=== PATIENT | female | born 1980 | race Caucasian/White ===

== ENCOUNTER 2017-03-23 23:12 | Emergency (ER) | payer SELFPAY ==
[2017-03-23] MEDS ORDERED: PREDNISONE 20 MG TAB PO ONE (23:48)
--- NOTE | 2017-03-23 23:49 | Emergency Department Record ---
History of Present Illness - General Chief Complaint: Cough Stated Complaint: COUGHING A LITTLE BIT OF BLOOD Time Seen by Provider: 03/23/17 23:29 Source: Patient, Family Mode of Arrival: Ambulatory Limitations: No limitations - History of Present Illness Initial Comments: 36 yo female presents with cough that had some blood in it tonight after a long hard coughing episode. She has been coughing on and off for several months. She had bronchitis and strep at one point. She later tested positive for Influenza and was treated. She has been on antibiotics multiple times. She has had some yellow sputum but tonight she had blood mixed in the sputum. She blew her nose and had blood as well. She is a smoker. She is not on any HRT. No history of DVT or PE. No calf pain or swelling. MD Complaint: Cough Onset/Timin -: Week(s) Severity: Mild Consistency: Other (One time) Improves With: Nothing Worsens With: Other (Hard coughing) Context: Sick contacts (Multiple other family had URI's as well) Associated Symptoms: Cough, Epistaxis Treatments Prior to Arrival: Other (Finished Keflex 2 days ago) - Related Data Previous Rx's Medication Instructions Recorded Azithromycin 250 mg PO DAILY #6 tablet 03/24/17 Allergies Allergy/AdvReac Type Severity Reaction Status Date / Time aspirin Allergy Severe ANAPHYLAXIS Unverified 12/15/16 10:25 Travel Screening - Travel/Exposure Within Last 30 Days Have you traveled within the last 30 days?: No Review of Systems Constitutional: Denies: Chills, Fever, Malaise, Weakness Eyes: Denies: Eye discharge, Eye pain, Photophobia, Vision change ENT: Reports: Congestion, Epistaxis, Throat pain Respiratory: Reports: Cough, Hemoptysis (small streak tonight after hard cough with nose bleed at the same time). Denies: Dyspnea, Stridor, Wheezes Cardiovascular: Denies: Chest pain, Palpitations, Syncope Endocrine: Denies: Fatigue Gastrointestinal: Denies: Abdominal pain, Diarrhea, Nausea, Vomiting Genitourinary: Denies: Dysuria, Urgency Musculoskeletal: Denies: Arthralgia, Back pain, Joint swelling, Myalgia Skin: Denies: Bruising, Change in color Neurological: Denies: Confusion, Headache Psychiatric: Denies: Anxiety Hematological/Lymphatic: Denies: Blood Clots (no history of DVT or PE), Easy bleeding, Easy bruising, Swollen glands Past Medical History - SOCIAL HISTORY Smoking Status: Current every day smoker Alcohol Use: None Drug Use: None - RESPIRATORY Hx Respiratory Disorders: No - CARDIOVASCULAR Hx Cardio Disorders: No Hx Chest Pain: Yes (chest pain 9-16 had neg cardio work up) - NEURO Hx Neuro Disorders: No - GI Hx GI Disorders: No - Hx Genitourinary Disorders: No Comment:: pt has IUD no menses x's 1 year - ENDOCRINE Hx Endocrine Disorders: No - MUSCULOSKELETAL Hx Musculoskeletal Disorders: No Comment:: pain right knee - PSYCH Hx Psych Problems: No Hx Anxiety: Yes - HEMATOLOGY/ONCOLOGY Hx Hematology/Oncology Disorders: No Family Medical History Any Significant Family History?: Yes Hx Diabetes: Father Hx HTN: Father Physical Exam - General General Appearance: Alert, Oriented x3, Cooperative, No acute distress Limitations: No limitations - Head Head exam: Atraumatic, Normal inspection - Eye Eye exam: Normal appearance, PERRL. negative: Conjunctival injection, Periorbital swelling - ENT ENT exam: Normal exam, Mucous membranes moist Ear exam: Normal external inspection Nasal Exam: Dried blood Mouth exam: Normal external inspection Teeth exam: Normal inspection Throat exam: Normal inspection - Neck Neck exam: Normal inspection, Full ROM. negative: Lymphadenopathy, Tenderness - Respiratory Respiratory exam: Normal lung sounds bilaterally. negative: Accessory muscle use, Chest wall tenderness, Decreased breath sounds, Respiratory distress, Rhonchi, Stridor, Wheezes - Cardiovascular Cardiovascular Exam: Regular rate, Normal rhythm, Normal heart sounds Peripheral Pulses: 2+: Radial (R), Radial (L) - GI/Abdominal GI/Abdominal exam: Soft - Rectal Rectal exam: Deferred - exam: Deferred - Extremities Extremities exam: Normal inspection, Full ROM, Normal capillary refill. negative: Calf tenderness, Pedal edema, Tenderness - Back Back exam: Reports: Normal inspection, Full ROM. Denies: Muscle spasm, Rash noted, Tenderness - Neurological Neurological exam: Alert, Normal gait, Oriented X3, Reflexes normal - Psychiatric Psychiatric exam: Normal affect, Normal mood - Skin Skin exam: Dry, Intact, Normal color, Warm Course Vital Signs 03/23/17 23:19 Temperature 97.9 F Pulse Rate [ 84 Pulse Ox Probe] Respiratory 18 Rate Blood Pressure 108/63 [Left Arm] Pulse Ox 98 - Reevaluation(s) Reevaluation #1: The patient has atypical symptoms for DVT/PE. She had yellow sputum and saw blood in her sputum after a hard coughing spell with associated nose bleed. i initially considered screening D-dimer but these symptoms are very unlikely to be be PE and blood likely was from the nose. Risk of a false negative D-Dimer resulting in CTA is possible. She had a CTA about 5 months ago. Cancer risks in the future are a concern for her atypical and very likely explainable small streak of blood in her sputum. No tachycardia, hypoxia, calf tenderness, chest pain, shortness of breath. 03/23/17 23:55 Medical Decision Making - Lab Data Result diagrams: 03/23/17 23:37 03/23/17 23:37 Disposition Disposition: Discharge Clinical Impression: Epistaxis, Bronchitis Disposition: Home, Self-Care Condition: (1) Good Instructions: Acute Bronchitis (ED) Additional Instructions: Call the family proctice office for close follow up Return if worse, fever, short of breath or any new concerns Prescriptions: Azithromycin 250 mg PO DAILY #6 tablet Forms: Patient Portal Access Time of Disposition: 00:31
[2017-03-24] MEDS ORDERED: IPRATROPIUM/ALBUTEROL 4 GM INH INH PRN
== END 2017-03-24 00:47 | disposition home or self-care (01) ==
LOC: ER 23:12
DX: R04.0 Epistaxis (principal); J20.9 Acute bronchitis, unspecified
CPT/HCPCS: 99283 ×2; 71020; J7512

== ENCOUNTER 2017-04-19 21:59 | Emergency (ER) | payer SELFPAY ==
--- NOTE | 2017-04-19 22:56 | Emergency Department Record ---
History of Present Illness - General Chief Complaint: Cough Stated Complaint: COUGH,PAIN SHOULDER BLADES Time Seen by Provider: 04/19/17 22:31 Source: Patient Mode of Arrival: Ambulatory - History of Present Illness Initial Comments: The patient states she has had constant pains around her chest in the front and the back for over a month. She states she is smoker and has been coughing which does not improve with inhalers, antibiotics, and steroids. The soreness is continuous, does not worsen with coughing. She denies f,c,n,v,d,ap, rashes, st, calf tenderness. she denies history of PE, DT, pneumonia. Her last CXR two months ago did NOT show pneumonia according to her. Onset/Timin -: Month(s) Severity: Moderate Severity scale (1-10): 7 Consistency: Constant - Related Data Previous Rx's Medication Instructions Recorded Methylprednisolone [Medrol Dose 0 mg PO UD #1 tab.ds.pk 04/20/17 Pack] Allergies Allergy/AdvReac Type Severity Reaction Status Date / Time aspirin Allergy Severe ANAPHYLAXIS Unverified 12/15/16 10:25 Travel Screening - Travel/Exposure Within Last 30 Days Have you traveled within the last 30 days?: No Review of Systems Reviewed: No additional complaints except as noted below Constitutional: Reports: As per HPI. Denies: Chills, Fever, Malaise, Night sweats, Weakness, Weight change Eyes: Reports: As per HPI. Denies: Eye discharge, Eye pain, Photophobia, Vision change ENT: Reports: As per HPI. Denies: Congestion, Dental pain, Ear pain, Epistaxis , Hearing loss, Throat pain Respiratory: Reports: As per HPI. Denies: Cough, Dyspnea, Hemoptysis, Stridor, Wheezes Cardiovascular: Reports: As per HPI. Denies: Arrhythmia, Chest pain, Dyspnea on exertion, Edema, Murmurs, Orthopnea, Palpitations, Paroxysmal nocturnal dyspnea, Rheumatic Fever, Syncope Endocrine: Reports: As per HPI. Denies: Fatigue, Heat or cold intolerance, Polydipsia, Polyuria Gastrointestinal: Reports: As per HPI. Denies: Abdominal pain, Constipation, Diarrhea, Hematemesis, Hematochezia, Melena, Nausea, Vomiting Genitourinary: Reports: As per HPI. Denies: Abnormal menses, Discharge, Dyspareunia, Dysuria, Frequency, Hematuria, Incontinence, Retention, Urgency Musculoskeletal: Reports: As per HPI. Denies: Arthralgia, Back pain, Gout, Joint swelling, Myalgia, Neck pain Skin: Reports: As per HPI. Denies: Bruising, Change in color, Change in hair/ nails, Lesions, Pruritus, Rash Neurological: Reports: As per HPI. Denies: Abnormal gait, Confusion, Headache, Numbness, Paresthesias, Seizure, Tingling, Tremors, Vertigo, Weakness Psychiatric: Reports: As per HPI. Denies: Anxiety, Auditory hallucinations, Depression, Homicidal thoughts, Suicidal thoughts, Visual hallucinations Hematological/Lymphatic: Reports: As per HPI. Denies: Anemia, Blood Clots, Easy bleeding, Easy bruising, Swollen glands Past Medical History - SOCIAL HISTORY Smoking Status: Current every day smoker Alcohol Use: None Drug Use: None - RESPIRATORY Hx Respiratory Disorders: No - CARDIOVASCULAR Hx Cardio Disorders: No Hx Chest Pain: Yes (chest pain 9-16 had neg cardio work up) - NEURO Hx Neuro Disorders: No - GI Hx GI Disorders: No - Hx Genitourinary Disorders: No Comment:: pt has IUD no menses x's 1 year - ENDOCRINE Hx Endocrine Disorders: No - MUSCULOSKELETAL Hx Musculoskeletal Disorders: No Comment:: pain right knee - PSYCH Hx Psych Problems: No Hx Anxiety: Yes - HEMATOLOGY/ONCOLOGY Hx Hematology/Oncology Disorders: No Family Medical History Any Significant Family History?: Yes Hx Diabetes: Father Hx HTN: Father Physical Exam - General General Appearance: Alert, Oriented x3, Cooperative, No acute distress - Head Head exam: Normal inspection - Eye Eye exam: Normal appearance, PERRL Pupils: Normal accommodation - ENT ENT exam: Normal exam, Mucous membranes moist, Normal external ear exam, Normal orophraynx, TM's normal bilaterally Ear exam: Normal external inspection. negative: External canal tenderness Nasal Exam: Normal inspection. negative: Discharge, Sinus tenderness Mouth exam: Normal external inspection, Tongue normal Teeth exam: Normal inspection. negative: Dental caries Throat exam: Normal inspection. negative: Tonsillar erythema, Tonsillar exudate - Neck Neck exam: Normal inspection, Full ROM. negative: Tenderness - Respiratory Respiratory exam: Decreased breath sounds. negative: Chest wall tenderness, Prolonged expiratory, Rales, Respiratory distress, Stridor, Wheezes - Cardiovascular Cardiovascular Exam: Regular rate, Normal rhythm, Normal heart sounds - GI/Abdominal GI/Abdominal exam: Soft, Normal bowel sounds. negative: Tenderness - Rectal Rectal exam: Deferred - exam: Deferred - Extremities Extremities exam: Normal inspection, Full ROM, Normal capillary refill. negative: Calf tenderness, Pedal edema, Tenderness - Back Back exam: Reports: Normal inspection, Full ROM. Denies: Muscle spasm, Rash noted, Tenderness - Neurological Neurological exam: Alert, CN II-XII intact, Normal gait, Oriented X3, Reflexes normal - Psychiatric Psychiatric exam: Normal affect, Normal mood - Skin Skin exam: Dry, Intact, Normal color, Warm Course Vital Signs 04/19/17 04/19/17 22:13 22:14 Temperature 98.3 F 98.3 F Pulse Rate [ 66 Pulse Ox Probe] Respiratory 20 20 Rate Blood Pressure 114/68 [Left Arm] Pulse Ox 98 98 - Reevaluation(s) Reevaluation #1: Patient is snuggling on cart with her boyfriend watching TV, NAD. States steroids helped before and agrees to toradol. 04/20/17 00:34 Reevaluation #2: Patient is requesting something to drink. Told to wait until her CT is completed. 04/20/17 02:14 Reevaluation #3: Lengthy detailed instructions given to patient and her regarding the need to stop smoking, positive reinforcements and support to help be successful. Also, the radiation she has received over these several visits are potentially dangerous. Patient understands and agrees. 04/20/17 03:13 Medical Decision Making - Management Options MDM Management: No Additional Work-up Planned - Data Complexity MDM Data: Labs Ordered and/or Reviewed (D Dimer 0.61), X-Ray Ordered and/or Reviewed (CTA chest: Normal. Per [facility].), EKG Ordered and/or Reviewed, Independent Visualization of Image, Tracing, or Specimen (Reviewed CTA report of 09-02-16 which showed no acute process, no aneurysm or dissection, and no PE. ), Decision to Obtain Old Record (Reviewed old record from February of this year when she was treated for bronchitis with antibiotics, no lab work, no CT's. Note was made that she had a CTA 5 months ago. ) - Lab Data Result diagrams: 04/19/17 22:25 04/19/17 22:25 - EKG Data -: EKG Interpreted by Me EKG: No Acute Changes Disposition Disposition: Discharge Clinical Impression: Chest pain, non-cardiac, Bronchitis Disposition: Home, Self-Care Condition: (1) Good Instructions: Chronic Bronchitis (ED) Additional Instructions: Continue with inhalers as needed. Prednisone and taper until gone. Discontinue smoking completely and permanently. Follow up with PCP 1 week. tylenol or ibuprofen as directed if needed for pain Prescriptions: Methylprednisolone [Medrol Dose Pack] 0 mg PO UD #1 tab.ds.pk Forms: Patient Portal Access
[2017-04-19 23:06] LABS: BASO % 0.4 % (0-6); EOS % 2.5 % (0-6); GRAN % 62.9 % (47-80); HEMOGLOBIN 14.7 gm/dl (11.6-16.0); LYMPH % 29.4 % (16-45); MEAN CELL VOLUME 91.5 fl (81-97); MEAN CORPUSCULAR HEMOGLOBIN 29.9 pg (27-33); MEAN CORPUSCULAR HGB CONC 32.7 g/dl (32-36); MEAN PLATELET VOLUME 10.9 fl (7.4-10.4); MONO % 4.8 % (0-9); PLATELET COUNT 297 K/uL (130-400); RED BLOOD COUNT 4.92 M/uL (3.80-5.40); RED CELL DISTRIBUTION WIDTH 13.9 % (11.5-14.5); WHITE BLOOD COUNT W/O DIFF 11.3 K/uL (4.2-12.2)
[2017-04-19] MEDS ORDERED: IPRATROPIUM/ALBUTEROL (0.5MG/3MG) NEB INH ONE (23:11)
[2017-04-19 23:17] LABS: ANION GAP 6.9 (7-16); BLOOD UREA NITROGEN 10 mg/dL (7-17); CARBON DIOXIDE 25.1 mmol/L (22-30); CREATININE 0.9 mg/dL (0.52-1.04); EST GLOMERULAR FILTRATION RATE > 60 ml/min; GLUCOSE,RANDOM 94 mg/dL (70-110)
[2017-04-19 23:19] LABS: INR 0.87; PARTIAL THROMBOPLASTIN TIME 28.2 SECONDS (24.5-39.1); PROTHROMBIN TIME (PATIENT) 9.8 SECONDS (9.5-12.1)
[2017-04-19 23:30] LABS: CKMB < 1.0 ng/mL (0-4.3); D-DIMER 0.61 mg/L FEU (0-0.59); TROPONIN I < 0.012 ng/mL (0.00-0.034)
[2017-04-20] MEDS ORDERED: KETOROLAC 30 MG/ML VIAL IVP ONE (00:30)
[2017-04-20] MEDS ORDERED: METHYLPREDNISOLONE PF 125MG/VIAL IVP ONE (00:30)
== END 2017-04-20 03:07 | disposition home or self-care (01) ==
LOC: ER 21:59
DX: J20.9 Acute bronchitis, unspecified (principal); R07.9 Chest pain, unspecified; M25.512 Pain in left shoulder; M25.511 Pain in right shoulder; F17.210 Nicotine dependence, cigarettes, uncomplicated
CPT/HCPCS: 99284 ×2; 96374; 96375; 85025; 85730; 85610; 82553; 84484; 80048; 84703; 85379; 71260; 94640; 93005; 93010; Q9967; J1885; J2930

== ENCOUNTER 2017-08-30 14:01 | Emergency (ER) | payer MEDICAID ==
--- NOTE | 2017-08-30 14:20 | Emergency Department Record ---
History of Present Illness - General Chief Complaint: Chest Pain Stated Complaint: TIGHTNESS IN CHEST, PAIN BETWEEN SHOULDER BLADES Time Seen by Provider: 08/30/17 14:17 Source: Patient Mode of Arrival: Ambulatory Limitations: No limitations - History of Present Illness Initial Comments: 37 yo female presents with 4 days of discomfort in the back, shoulders, chest and neck. The onset has been gradual. No cough. It hurts to move in certain directions especially the right arm. When she lifts the arm she feels a tightness or pulling sensation. She has a similar sensation with bending her neck forward. She is 11 weeks . She has had similar symptoms several times in the past leading to evaluations. No known history of CAD,PE, DVT. No fevers. She does have some new nasal congestion. No unusually early onset of CAD in the family or PE. PCP is [facility] at [facility]. MD Complaint: Chest pain, Other -: Days(s) (4) Onset: Other (onset gradual) Pain Location: Other (back, neck, chest, shoulders) Quality: Aching, Tightness, Other Consistency: Constant Improves With: Leaning foward, Remaining still Worsens With: Movement, Palpation Context: Recent illness (nasal congestion) - Related Data Home Medications Medication Instructions Recorded Confirmed Last Taken Pnv,Calcium 72/Iron/Folic Acid 1 tab PO DAILY 08/30/17 08/30/17 08/30/17 [Pnv Plus Multivit Tab] Ranitidine HCl [Heartburn Relief] 75 mg PO ASDIR 08/30/17 08/30/17 08/26/17 Allergies Allergy/AdvReac Type Severity Reaction Status Date / Time aspirin Allergy Severe ANAPHYLAXIS Unverified 12/15/16 10:25 Review of Systems Constitutional: Denies: Chills, Fever, Malaise, Weakness Eyes: Denies: Eye discharge ENT: Reports: Congestion. Denies: Epistaxis, Throat pain Respiratory: Denies: Dyspnea, Hemoptysis, Stridor, Wheezes Cardiovascular: Reports: Chest pain, Dyspnea on exertion (at times). Denies: Arrhythmia, Edema, Orthopnea, Palpitations, Paroxysmal nocturnal dyspnea, Rheumatic Fever, Syncope Endocrine: Denies: Fatigue, Heat or cold intolerance, Polydipsia, Polyuria Gastrointestinal: Reports: Nausea (early ). Denies: Constipation, Vomiting Genitourinary: Denies: Dysuria, Urgency Musculoskeletal: Reports: As per HPI, Arthralgia, Back pain, Myalgia, Neck pain. Denies: Joint swelling Skin: Denies: Bruising, Change in color, Rash Neurological: Denies: Headache, Numbness, Vertigo, Weakness Psychiatric: Denies: Anxiety Hematological/Lymphatic: Denies: Blood Clots, Easy bleeding, Easy bruising, Swollen glands Past Medical History - SOCIAL HISTORY Smoking Status: Current every day smoker Drug Use: None - RESPIRATORY Hx Respiratory Disorders: No - CARDIOVASCULAR Hx Cardio Disorders: No Hx Chest Pain: Yes (chest pain 9-16 had neg cardio work up) - NEURO Hx Neuro Disorders: No - GI Hx GI Disorders: No - Hx Genitourinary Disorders: No Comment:: pt has IUD no menses x's 1 year - ENDOCRINE Hx Endocrine Disorders: No - MUSCULOSKELETAL Hx Musculoskeletal Disorders: No Comment:: pain right knee - PSYCH Hx Psych Problems: No Hx Anxiety: Yes - HEMATOLOGY/ONCOLOGY Hx Hematology/Oncology Disorders: No Family Medical History Hx Diabetes: Father Hx HTN: Father Physical Exam - General General Appearance: Alert, Oriented x3, Cooperative, No acute distress Limitations: No limitations - Head Head exam: Atraumatic, Normocephalic, Normal inspection - Eye Eye exam: Normal appearance, PERRL. negative: Conjunctival injection, Periorbital swelling - ENT ENT exam: Normal exam, Mucous membranes moist Ear exam: Normal external inspection Nasal Exam: Normal inspection Mouth exam: Normal external inspection Teeth exam: Normal inspection - Neck Neck exam: Normal inspection. negative: Lymphadenopathy - Respiratory Respiratory exam: Normal lung sounds bilaterally, Chest wall tenderness (tender right lateral chest in the lateral pectoral area, ), Other (Normal respiratory effort). negative: Accessory muscle use, Decreased breath sounds, Prolonged expiratory, Rales, Respiratory distress, Rhonchi, Stridor, Wheezes - Cardiovascular Cardiovascular Exam: Regular rate, Normal rhythm, Normal heart sounds. negative : Diastolic murmur, Systolic murmur Peripheral Pulses: 2+: Radial (R), Radial (L) - GI/Abdominal GI/Abdominal exam: Soft. negative: Tenderness - Rectal Rectal exam: Deferred - exam: Deferred - Extremities Extremities exam: Normal inspection, Full ROM, Normal capillary refill. negative: Joint swelling, Pedal edema, Tenderness - Back Back exam: Reports: Normal inspection, Full ROM, Muscle spasm, Tenderness ( tender in the upper scappular area). Denies: CVA tenderness (R), CVA tenderness (L) - Neurological Neurological exam: Alert, Normal gait, Oriented X3, Reflexes normal - Psychiatric Psychiatric exam: Normal affect, Normal mood. negative: Agitated, Anxious - Skin Skin exam: Dry, Intact, Normal color, Warm Course - Reevaluation(s) Reevaluation #1: EKG NSR rate is 69 with normal intervals, axis is normal, ST no acute changes. No changes from 09/02/16 08/30/17 14:19 Vitals reviewed No acute changes No fever, tachycardia, or hypoxia. The patient is not dyspneic, she appears comfortable, the physical examination findings are reproducible. 08/30/17 14:35 The EMR was reviewed The patient has had similar presentations in the past She has had two CTA of the chest in the last one year. No PE found No changes on today's EKG from the prior Normal vital signs. Atypical symptoms that increase with positions and movements Given she is will withhold radiation of XR at this time. No strong indication for a third CTA of the chest at this time 08/30/17 14:45 Bedside US used to find the baby Movement noted. Strong HR approx 150 08/30/17 15:01 08/30/17 15:02 Reevaluation #2: The labs were reviewed No acute changes on the CBC,CMP and Troponin. No significant change of BNP The pain is atypical for PE, CAD, her lungs are clear and vitals normal Additional radiation at this time could be more harm than benefit. The finding are most consistent with musculo-skeletal 08/30/17 15:49 Medical Decision Making - Lab Data Result diagrams: 08/30/17 14:30 08/30/17 14:30 Disposition Disposition: Discharge Clinical Impression: Neck pain, Atypical chest pain Back pain Qualifiers: Back pain location: thoracic back pain Chronicity: acute Back pain laterality: bilateral Qualified Code(s): M54.6 - Pain in thoracic spine Disposition: Home, Self-Care Condition: (1) Good Instructions: Chest Pain (ED) Additional Instructions: Call your family doctor and your OB to discuss your symptoms and this ER visit Return sooner if worse, fever, cough, or any new concerns Rest and stay well hydrated Try to decrease and then quit smoking Forms: Patient Portal Access Time of Disposition: 15:51 Quality - Quality Measures Quality Measures: N/A - Blood Pressure Screening Does Patient Have Any of the Following: No Blood Pressure Classification: Normal BP Reading Systolic Measurement: 110 Diastolic Measurement: 57 Screening for High Blood Pressure: < Normal BP, F/U Not Required > [G8783]
[2017-08-30 14:54] LABS: BASO % 0.3 % (0-6); EOS % 2.6 % (0-6); GRAN % 71.8 % (47-80); HEMATOCRIT 41.1 % (35.0-47.0); HEMOGLOBIN 13.8 gm/dl (11.6-16.0); LYMPH % 20.5 % (16-45); MEAN CORPUSCULAR HEMOGLOBIN 29.6 pg (27-33); MEAN CORPUSCULAR HGB CONC 33.6 g/dl (32-36); MEAN PLATELET VOLUME 10.5 fl (7.4-10.4); MONO % 4.8 % (0-9); PLATELET COUNT 259 K/uL (130-400); RED BLOOD COUNT 4.67 M/uL (3.80-5.40); RED CELL DISTRIBUTION WIDTH 12.9 % (11.5-14.5); WHITE BLOOD COUNT W/O DIFF 9.2 K/uL (4.2-12.2)
[2017-08-30 15:19] LABS: ALB/GLOB RATIO 1.2 (1.1-1.8); ALBUMIN 3.7 g/dL (4.0-5.0); ALKALINE PHOSPHATASE 59 U/L (35-104); ALT/SGPT 28 U/L (<33); AST/SGOT 20 U/L (10.0-35.0); BLOOD UREA NITROGEN 7 mg/dL (6-20); CREATININE 0.5 mg/dL (0.5-0.9); EST GLOMERULAR FILTRATION RATE > 60 mL/min; GLUCOSE,RANDOM 123 mg/dL (74-109); TOTAL PROTEIN 6.8 g/dL (6.6-8.7)
[2017-08-30 15:20] LABS: TROPONIN I < 0.30 ng/mL (0.00-0.300)
== END 2017-08-30 16:09 | disposition home or self-care (01) ==
LOC: ER 14:01
DX: R07.89 Other chest pain (principal); M54.2 Cervicalgia; M54.6 Pain in thoracic spine; Z33.1 Pregnant state, incidental
CPT/HCPCS: 80048; 80053; 83880; 84484; 85025; 93005; 93010; 99284